=== PATIENT | male | born 1975 | race American Indian/Alaskan Native ===

== ENCOUNTER 2021-01-31 06:53 | Day surgery (SDC) | payer OTHER ==
[~2021-01-31 06:53] MED LIST: BUPIVACAINE/PF (0.25%) 2.5 MG/ML 30 ML VIAL INFILTRATI ONE; LIDOCAINE (1%) 10 MG/1 ML VIAL 20 ML MDV ONE
[2021-01-31] MEDS ORDERED: LIDOCAINE (1%) 10 MG/1 ML VIAL 20 ML MDV ONE ×2 (07:43→08:36)
[2021-01-31] MEDS ORDERED: BUPIVACAINE/PF (0.5%) 5 MG/1 ML 30 ML VIAL INFILTRATI ONE ×2 (07:43→08:32)
[2021-01-31] MEDS ORDERED: LIDOCAINE MPF (2%) 20 MG/1 ML VIAL 5 ML ONE (07:50)
[2021-01-31] MEDS ORDERED: propofoL 200 MG/20 ML VIAL IV ONE (07:51)
[2021-01-31 08:03] VITALS: BP 114/70
[2021-01-31] MEDS ORDERED: LIDOCAINE (1%) 10 MG/1 ML VIAL 20 ML MDV INFILTRATI ONE ×2 (08:32)
--- NOTE | 2021-01-31 17:09 | XRay Report ---
LUMBAR SPINE ONE VIEW 1935 INDICATION: BACK PAIN, intraoperative, fluoroscopy time 39 seconds COMPARISON: None available. FINDINGS: Single oblique C-arm view was obtained during a procedure in conjunction with radiology per sonnel. Jefferson are seen in the facet regions from L2 to L5. Signer Name: J Carlos Cheek MD Signed: 01/31/2021 5:05 PM Workstation Name: [id number]
--- NOTE | 2021-02-12 16:51 | Procedure Note ---
Date of procedure: 01/31/21 Pre-op diagnosis: chronic low back pain Post-op diagnosis: same Procedure: Lumbar facet blocks at [right] L2 through L5 Procedure The patient was brought to the OR and placed prone onto the OR table, the lumbar spine was prepped and draped in the usual sterile manner. A timeout procedure was done to identify the patient and the correct levels of nerve block being performed the patient was awake during the procedure. Using C-arm fluoroscopy the L5 through L2 levels were visualized in both the PA and 45 oblique views 20-gauge spinal needles were inserted again under direct fluoroscopic control after placing the spinal needles and the correct position and Marcaine injection was performed using 1% without epinephrine. The patient tolerated the procedure and no complications Anesthesia: local Surgeon: MARYLOU STAPLETON Estimated blood loss: minimal Pathology: none Condition: stable Disposition: observation
== END 2021-01-31 09:04 | disposition home or self-care (01) ==
LOC: EDBD 06:53 → OR 06:53
PROVIDERS: ATTEND Orthopaedic Surgery
DX: M54.5 Low back pain (principal); G89.29 Other chronic pain; F41.9 Anxiety disorder, unspecified; F32.9 Major depressive disorder, single episode, unspecified; M19.90 Unspecified osteoarthritis, unspecified site; D64.9 Anemia, unspecified; F17.210 Nicotine dependence, cigarettes, uncomplicated; Z88.8 Allergy status to other drugs, medicaments and biological substances; Z79.899 Other long term (current) drug therapy; Z98.890 Other specified postprocedural states; Z83.3 Family history of diabetes mellitus; Z72.89 Other problems related to lifestyle; Z82.49 Family history of ischemic heart disease and other diseases of the circulatory system
CPT/HCPCS: 72020; J2704

== ENCOUNTER 2021-02-21 08:31 | Day surgery (SDC) | payer OTHER ==
[~2021-02-21 08:31] MED LIST changes: -BUPIVACAINE/PF (0.25%) 2.5 MG/ML 30 ML VIAL INFILTRATI ONE; +LACTATED RINGERS 1,000 ML IV SCH; -LIDOCAINE (1%) 10 MG/1 ML VIAL 20 ML MDV ONE; +MIDAZOLAM 2 MG/2 ML INJ IV NR
[2021-02-21 09:23] VITALS: BP 112/66
[2021-02-21] MEDS ORDERED: HYDROcodone/ACETAMINOPHEN 5-325 MG TAB PO PRN (09:27)
[2021-02-21] MEDS ORDERED: ONDANSETRON 4 MG/2 ML INJ IV PRN (09:27)
[2021-02-21] MEDS ORDERED: fentaNYL 100 MCG/2 ML INJ IV PRN (09:27)
--- NOTE | 2021-02-21 09:27 | Anesthesia Consultation ---
Anesthesia Consult and Med Hx - Airway Anesthetic Teeth Evaluation: Good ROM Head & Neck: Adequate Mental/Hyoid Distance: Adequate Mallampati Class: Class III Intubation Access Assessment: Possibly Difficult - Cardiac Exam Cardiac Exam: RRR - Pre-Operative Health Status ASA Pre-Surgery Classification: ASA2 Proposed Anesthetic Plan: MAC - Pulmonary Hx Smoking: Yes ([facility] only) Hx Respiratory Symptoms: No - Cardiovascular System Hx Hypertension: No Hx Heart Attack/AMI: No Hx Percutaneous Transluminal Coronary Angioplasty (PTCA): No Hx Cardia Arrhythmia: Yes (prior intermittent hx w/ neg cardiac work up. PCP managing.) Hx Pacemaker: No Hx Internal Defibrillator: No - Central Nervous System CVA: No Hx Back Pain: Yes Hx Psychiatric Problems: Yes (anxiety) - Endocrine Hx Renal Disease: No Hx Liver Disease: No Hx Insulin Dependent Diabetes: No Hx Non-Insulin Dependent Diabetes: No Hx Thyroid Disease: No - Other Systems Hx Substance Use: Yes ([facility]) Hx Obesity: No
--- NOTE | 2021-02-21 09:27 | Anesthesia Day of Surgery ---
Anesthesia Day of Surgery - Day of Surgery Patient Examined: Yes Patient H&P Reviewed: Yes Patient is NPO: Yes
[2021-02-21] MEDS ORDERED: LIDOCAINE (1%) 10 MG/1 ML VIAL 20 ML MDV ONE (10:28)
[2021-02-21] MEDS ORDERED: BUPIVACAINE/PF (0.5%) 5 MG/1 ML 30 ML VIAL INFILTRATI ONE (10:29)
[2021-02-21] MEDS ORDERED: methylPREDNISolone ACETATE 40 MG/1 ML INJ ONE (10:29)
== END 2021-02-21 08:32 | disposition home or self-care (01) ==
LOC: OR 08:31
PROVIDERS: ATTEND Orthopaedic Surgery
DX: M54.5 Low back pain (principal); Z53.8 Procedure and treatment not carried out for other reasons; F17.210 Nicotine dependence, cigarettes, uncomplicated; I42.9 Cardiomyopathy, unspecified; M19.90 Unspecified osteoarthritis, unspecified site; F32.9 Major depressive disorder, single episode, unspecified; F41.9 Anxiety disorder, unspecified; D64.9 Anemia, unspecified; Z88.8 Allergy status to other drugs, medicaments and biological substances; Z79.899 Other long term (current) drug therapy; Z98.890 Other specified postprocedural states
CPT/HCPCS: J2250; J7120; J1030

== ENCOUNTER 2021-04-29 12:01 | Outpatient (CLI) | payer OTHER | END 2021-04-29 12:02 | disposition home or self-care (01) | LOC: XRAY 12:01 | CPT/HCPCS: 72040 ==

== ENCOUNTER 2022-05-08 09:13 | Day surgery (SDC) | payer OTHER ==
[2022-05-08] MEDS ORDERED: LIDOCAINE (1%) 10 MG/1 ML VIAL 20 ML MDV ONE ×2 (11:20→11:46)
[2022-05-08] MEDS ORDERED: methylPREDNISolone ACETATE 40 MG/1 ML INJ ONE (11:21)
[2022-05-08] MEDS ORDERED: BUPIVACAINE/PF (0.5%) 5 MG/1 ML 30 ML VIAL INFILTRATI ONE ×3 (11:21→11:50)
[2022-05-08] MEDS ORDERED: LIDOCAINE (1%) 10 MG/1 ML VIAL 20 ML MDV INFILTRATI ONE ×2 (11:49)
--- NOTE | 2022-05-08 12:13 | Procedure Note ---
Date of procedure: 05/08/22 Pre-op diagnosis: chronic low back pain Post-op diagnosis: same Procedure: Lumbar facet blocks at left L2 through S1 levels Procedure The patient was brought to the OR and placed prone onto the OR table, the lumbar spine was prepped and draped in the usual sterile manner. A timeout procedure was done to identify the patient and the correct levels of nerve block being performed the patient was awake during the procedure. Using C-arm fluoroscopy the S1 through L2 levels were visualized in both the PA and 45 oblique views 20-gauge spinal needles were inserted again under direct fluoroscopic control after placing the spinal needles and the correct position and Marcaine injection was performed using 1% without epinephrine. The patient tolerated the procedure and no complications Anesthesia: local Surgeon: MARYLOU STAPLETON Estimated blood loss: minimal Pathology: none Condition: stable Disposition: observation
[2022-05-08 12:20] VITALS: BP 110/67
--- NOTE | 2022-05-08 15:13 | XRay Report ---
Lumbar spine fluoroscopy INDICATION: Low back pain. Facet block IMPRESSION: Multilevel facet needle localization identified on the left side from L2 through S1. Fluoroscopy time: 54 seconds. Fluoroscopic images: 1. Signer Name: Nikita Lantigua MD Signed: 05/08/2022 3:08 PM Workstation Name: [email or web address]
== END 2022-05-08 12:18 | disposition home or self-care (01) ==
LOC: OR 09:13
PROVIDERS: ATTEND Orthopaedic Surgery
DX: M54.59 Other low back pain (principal); G89.29 Other chronic pain; M47.816 Spondylosis without myelopathy or radiculopathy, lumbar region; M17.0 Bilateral primary osteoarthritis of knee; F32.9 Major depressive disorder, single episode, unspecified; F41.9 Anxiety disorder, unspecified; D64.9 Anemia, unspecified; I42.9 Cardiomyopathy, unspecified; F17.210 Nicotine dependence, cigarettes, uncomplicated; Z83.3 Family history of diabetes mellitus; Z88.8 Allergy status to other drugs, medicaments and biological substances; Z79.899 Other long term (current) drug therapy; Z98.890 Other specified postprocedural states; Z82.49 Family history of ischemic heart disease and other diseases of the circulatory system
CPT/HCPCS: 64493; 64494; 64495; 72100; J3490; J1030

== ENCOUNTER 2022-05-29 07:13 | Day surgery (SDC) | payer OTHER ==
[2022-05-29] MEDS ORDERED: ceFAZolin/STERILE WATER 2 GM/20 ML SYRINGE IV NR (08:00)
--- NOTE | 2022-05-29 08:45 | Anesthesia Consultation ---
Anesthesia Consult and Med Hx Date of service: 05/29/22 - Airway Anesthetic Teeth Evaluation: Good ROM Head & Neck: Adequate Mental/Hyoid Distance: Adequate Mallampati Class: Class III Intubation Access Assessment: Possibly Difficult - Pre-Operative Health Status ASA Pre-Surgery Classification: ASA2 Proposed Anesthetic Plan: MAC - Pulmonary Hx Smoking: Yes ([facility]) Hx Respiratory Symptoms: No - Cardiovascular System Hx Hypertension: No Hx Cardia Arrhythmia: Yes (hx palpitations w/ neg cardiac work up per patient; no recent issues) Hx Pacemaker: No Hx Internal Defibrillator: No - Central Nervous System CVA: No Hx Back Pain: Yes - Endocrine Hx Renal Disease: No Hx Liver Disease: No Hx Insulin Dependent Diabetes: No Hx Non-Insulin Dependent Diabetes: No Hx Thyroid Disease: No - Other Systems Hx Substance Use: Yes ([facility])
--- NOTE | 2022-05-29 08:45 | Anesthesia Day of Surgery ---
Anesthesia Day of Surgery - Day of Surgery Patient Examined: Yes Patient H&P Reviewed: Yes Patient is NPO: Yes
[2022-05-29] MEDS ORDERED: HYDROcodone/ACETAMINOPHEN 5-325 MG TAB PO NR (09:00)
[2022-05-29] MEDS ORDERED: HYDROmorphone 0.5 MG/0.5 ML INJ IV PRN (09:00)
[2022-05-29] MEDS ORDERED: methylPREDNISolone ACETATE 40 MG/1 ML INJ ONE (10:01)
[2022-05-29] MEDS ORDERED: LIDOCAINE (2%) 20 MG/1 ML VIAL 20 ML MDV INFILTRATI ONE ×2 (10:01→11:44)
[2022-05-29] MEDS ORDERED: BUPIVACAINE/PF (0.5%) 5 MG/1 ML 10 ML VIAL INFILTRATI ONE ×2 (10:01→11:44)
[2022-05-29] MEDS ORDERED: propofoL 200 MG/20 ML VIAL IV ONE ×3 (10:42→11:53)
[2022-05-29] MEDS ORDERED: fentaNYL 100 MCG/2 ML INJ ONE (10:42)
[2022-05-29] MEDS ORDERED: MIDAZOLAM 2 MG/2 ML INJ ONE (10:42)
[2022-05-29] MEDS ORDERED: LIDOCAINE MPF (2%) 20 MG/1 ML VIAL 5 ML ONE (10:43)
[2022-05-29] MEDS ORDERED: KETAMINE/STERILE WATER 50 MG/ML SYRINGE ONE (11:44)
[2022-05-29] MEDS ORDERED: methylPREDNISolone ACETATE 40 MG/1 ML INJ INTRA-ARTI ONE (11:44)
[2022-05-29] MEDS ORDERED: LIDOCAINE-MPF (1%) 10 MG/1 ML VIAL 5 ML ONE (12:01)
--- NOTE | 2022-05-29 12:24 | Procedure Note ---
Date of procedure: 05/29/22 Pre-op diagnosis: Chronic low back pain Post-op diagnosis: same Procedure: Lumbar radiofrequency ablation at the left L2-5 levels Procedure The patient was brought to the OR and placed on the Valerio table prone with a pillow place underneath the abdomen to straighten out the lumbar spine next the lumbar spine area was prepped and draped in the usual sterile manner. A timeout procedure done to identify the patient and correct operative site Using C-arm fluoroscopy 4 lumbar pain management introducers placed in the area near the superior articular process junctions to the transverse processes AP and lateral views were used to confirm correct placement of the probes. Next motor nerves were checked to ensure that we were not next to a motor branch following this local anesthetic was used to deaden the area followed by radiofrequency ablation of the medial branch of the dorsal rami of L2 through L5 levels. This step repeated for each level until we had perform all four spots. At the completion of the third and final ablation the patient was awakened and was taken to postanesthesia recovery in a stable condition, there were no complications Anesthesia: MAC Surgeon: MARYLOU STAPLETON Estimated blood loss: minimal Pathology: none Condition: stable Disposition: PACU
[2022-05-29 13:05] VITALS: BP 112/82
--- NOTE | 2022-05-29 14:05 | XRay Report ---
Lumbosacral spine 2 views INDICATION: Surgery FINDINGS: Total fluoroscopy time 0.5 minutes. Please see operative note. Signer Name: Jefe Soto MD Signed: 05/29/2022 2:01 PM Workstation Name: [email or web address]
--- NOTE | 2022-05-29 14:27 | Post Anesthesia Evaluation ---
- Post Anesthesia Evaluation Patient Participated: Yes Airway Patent: Yes Stable Respiratory Function: Yes Nausea/Vomiting: No Temp > 96.8F: Yes Pain Manageable: Yes Adequeate Hydration: Yes Anesthesia Complications: No
== END 2022-05-29 13:00 | disposition home or self-care (01) ==
LOC: OR 07:13
PROVIDERS: ATTEND Orthopaedic Surgery
DX: M54.42 Lumbago with sciatica, left side (principal); M47.816 Spondylosis without myelopathy or radiculopathy, lumbar region; G89.29 Other chronic pain; M19.90 Unspecified osteoarthritis, unspecified site; F41.9 Anxiety disorder, unspecified; F32.9 Major depressive disorder, single episode, unspecified; D64.9 Anemia, unspecified; F17.210 Nicotine dependence, cigarettes, uncomplicated; Z79.899 Other long term (current) drug therapy; Z98.890 Other specified postprocedural states
CPT/HCPCS: 64635; 64636; 72020; A4649; J0690; J1030; J2250; J2704; J3010; J3490; J7120